=== PATIENT | male | born 1995 | race Caucasian/White ===

== ENCOUNTER 2023-08-29 12:34 | Outpatient (CLI) | payer OTHER, SELFPAY ==
--- NOTE | 2023-08-29 | CA_ITS ---
APPROVED REPORT EXAM: Comprehensive 2D, Doppler, and color-flow Echocardiogram Perl Programmer: Jeana Slater RT(R) Ht: 5 ft 7 in Wt: 218lbs BSA: 2.10 BP: 130/60 mmHg Indications: hx ablation for SVT 01/02/23, palpitations, edema, fatigue, SALES, family history of HD. 2D Dimensions LA Volume 25.50 mL LA Volume Index 12.14 mL/m2 (M/F) 16-34 EF AP4 67.90 % GL Strain -21.8 % M-Mode Dimensions RVDd 2.74 cm (0.9-2.6) LA Diam 3.43 cm (1.9-4.0) LVDd 5.05 cm (3.5-5.7) LVDs 3.65 cm (3.5-5.7) IVSd 0.65 cm (0.6-1.1) PWd 0.68 cm (0.6-1.1) EF (Teich) 53.50% FS 27.70% EDV (Teich) 121.00 mL ESV (Teich) 56.30 mL LV Diastology E Decel Time 150 (160-240 msec) E/A Ratio 1.0 Mitral Valve MV E Max Quinn. 68.0 (40-130 cm/s) MV A Velocity 66.0 (40-130 cm/s) E/A Ratio 1.03 MV PHT 44.0 ms Left Ventricle The left ventricle is normal size. The left ventricular systolic function is normal. The left ventricular ejection fraction is within the normal range. There is normal left ventricular wall thickness. There is normal LV segmental wall motion. The left ventricular diastolic function is normal. LVEF is 55%. Right Ventricle The right ventricle is normal size. The right ventricular systolic function is normal. Atria The left atrium size is normal. The right atrium size is normal. There is no Doppler evidence of interatrial shunt. Aortic Valve The aortic valve opens well. There is no aortic valvular stenosis. No aortic regurgitation is present. Mitral Valve The mitral valve is normal in structure. No evidence of mitral valve stenosis. There is no mitral valve regurgitation noted. Tricuspid Valve The tricuspid valve leaflets are thin and pliable. Trace tricuspid regurgitation. There is insufficient TR jet to estimate RVSP. Pulmonic Valve The pulmonary valve is normal in structure. Trace pulmonic regurgitation. Great Vessels The aortic root is normal in size. The ascending aorta is normal in size. IVC is normal in size and collapses >50% with inspiration. Pericardium There is no pericardial effusion. Other Information Study Quality: Adequate Conclusion Normal biventricular systolic function. No significant valvular stenosis or regurgitation. Electronically signed by : Deirdre Schaefer MD 08/30/2023 23:04:51
--- NOTE | 2023-08-29 13:09 | ECG_ITS ---
APPROVED REPORT Exam: Resting ECG HR:71 bpm ECG Measurements Heart Rate 71 AXES ND 169 P 53 QRSd 111 QRS 43 QT 373 T 30 QTc 395 Conclusion SINUS RHYTHM MODERATE INTRAVENTRICULAR CONDUCTION DELAY [110+ ms QRS DURATION] BORDERLINE ECG UNCONFIRMED REPORT Electronically signed by : Jewel Palomo MD 08/29/2023 20:36:07
== END 2023-08-29 23:59 ==
LOC: RT 12:35
PROVIDERS: PCP Family Medicine; Visit Provider Chiropractor
DX: I25.9 Chronic ischemic heart disease, unspecified (principal)
CPT/HCPCS: 93005; 93306